=== PATIENT | male | born 1995 | race Caucasian/White ===

== ENCOUNTER 2025-04-11 11:05 | Emergency (ER) | payer BC ==
[~2025-04-11] VITALS: Ht 180.3 cm; Wt 82.6 kg
[2025-04-11 12:22] VITALS: BP 113/81; TEMP 97.8; O2SAT 99
== END 2025-04-11 12:45 | disposition home or self-care (01) ==
LOC: ER 11:29
DX: R53.1 Weakness (principal); R42 Dizziness and giddiness; J45.909 Unspecified asthma, uncomplicated